=== PATIENT | female | born 1995 | race African-American/Black ===

== ENCOUNTER 2022-07-02 15:40 | Emergency (ER) | payer MEDICAID ==
[~2022-07-02] VITALS: Ht 165.1 cm; Wt 68.0 kg
[2022-07-02] MEDS ORDERED: IBUPROFEN 400MG TABLET PO ONE (18:15)
[2022-07-02] MEDS ORDERED: NAPR-681 MT (19:11)
[2022-07-02 19:34] VITALS: BP 115/96
== END 2022-07-02 19:35 | disposition home or self-care (01) ==
LOC: ER 15:40
DX: R07.89 Other chest pain (principal); V49.50XA Passenger injured in collision with unspecified motor vehicles in traffic accident, initial encounter; Y93.89 Activity, other specified; Y92.89 Other specified places as the place of occurrence of the external cause; Y99.8 Other external cause status
CPT/HCPCS: 71045; 93005; 99283